=== PATIENT | female | born 1955 | race Caucasian/White ===

== ENCOUNTER → 2023-09-03 06:50 | Outpatient (REF) | payer OTHER, SELFPAY ==
--- NOTE | 2023-09-03 09:20 | OID.BR.INTR ---
[facility] Breast Navigator - Initial
- -
Date of Contact: 09/03/23
Met with patient. Patient given written information on navigator services and support services available at [facility]. Will follow up as needed per protocol.
== END ==
LOC: WDC 06:50
PROVIDERS: ATTENDING PHYSICIAN Internal Medicine
DX: R92.1 Mammographic calcification found on diagnostic imaging of breast (principal)
CPT/HCPCS: 88305; 19081; 76098; A4648

== ENCOUNTER → 2024-10-18 07:31 | Outpatient (REF) | payer OTHER, SELFPAY ==
[2024-10-18 09:30] LABS: Glycohemoglobin (HgbA1c) 5.7 % (4.0-5.6)
[2024-10-18 09:36] LABS: ALT (SGPT) 22 U/L (0-35); AST (SGOT) 24 U/L (14-36); Albumin 4.4 g/dl (3.5-5.0); Alkaline Phosphatase 60 U/L (38-126); Blood Urea Nitrogen 15 mg/dl (7-17); Calcium 9.4 mg/dl (8.4-10.2); Carbon Dioxide 26 mmol/L (22-30); Chloride 108 mmol/L (98-107); Glucose 95 mg/dl (70-99); HDL Cholesterol 81 mg/dl; LDL Cholesterol, Calculated 32 mg/dl; Potassium 4.2 mmol/L (3.5-5.1); Sodium 141 mmol/L (135-145); Total Protein 6.3 g/dl (6.3-8.2); Very Low Density Lipoprotein 9 mg/dl (0-30); eGFR > 60.00
[2024-10-18 09:49] LABS: Vitamin D, 25-OH*** 99.7 ng/mL (30-80)
[2024-10-18 10:03] LABS: TSH 0.80 uIU/ml (0.47-4.68)
[2024-10-19 12:38] LABS: CRP, Ultra Sensitive 0.87 mg/L (0.30-5.00)
[2024-10-19 18:04] LABS: Lipoprotein a (Lp a) 44 mg/dL (<=29)
== END ==
LOC: RAD 07:31
PROVIDERS: FAMILY PHYSICIAN Internal Medicine
DX: M81.8 Other osteoporosis without current pathological fracture (principal); I25.10 Atherosclerotic heart disease of native coronary artery without angina pectoris; Z86.39 Personal history of other endocrine, nutritional and metabolic disease; E78.00 Pure hypercholesterolemia, unspecified
CPT/HCPCS: 36415; 77080; 80053; 80061; 82172; 82306; 83036; 83695; 83970; 84443; 86141

== ENCOUNTER → 2024-11-18 12:42 | Outpatient (REF) | payer OTHER, SELFPAY ==
[2024-11-18 13:41] LABS: Hematocrit 42.1 % (37.0-47.0); Hemoglobin 13.6 g/dL (12.0-16.0); Mean Corp Hgb Conc. 32.3 g/dL (33.0-37.0); Mean Corpuscular Volume 87.9 fL (81.0-99.0); Nucleated Red Blood Cells % 0 %; Platelet Count 204 10^3/uL (130-400); Red Cell Dist. Width 13.2 % (11.5-14.5)
[2024-11-18 14:25] LABS: Blood Urea Nitrogen 15 mg/dl (7-17); Calcium 9.4 mg/dl (8.4-10.2); Carbon Dioxide 30 mmol/L (22-30); Chloride 105 mmol/L (98-107); Glucose 94 mg/dl (70-99); Potassium 4.4 mmol/L (3.5-5.1); Sodium 140 mmol/L (135-145); eGFR > 60.00
== END ==
LOC: REG 12:42
PROVIDERS: FAMILY PHYSICIAN Internal Medicine
DX: E78.5 Hyperlipidemia, unspecified (principal); I25.10 Atherosclerotic heart disease of native coronary artery without angina pectoris
CPT/HCPCS: 36415; 80048; 85025

== ENCOUNTER → 2025-02-07 07:15 | Outpatient (REF) | payer OTHER, SELFPAY ==
[2025-02-07 09:11] LABS: ALT (SGPT) 23 U/L (0-35); AST (SGOT) 23 U/L (14-36); Albumin 4.4 g/dl (3.5-5.0); Alkaline Phosphatase 53 U/L (38-126); Blood Urea Nitrogen 8 mg/dl (7-17); Calcium 9.4 mg/dl (8.4-10.2); Carbon Dioxide 29 mmol/L (22-30); Chloride 104 mmol/L (98-107); Glucose 95 mg/dl (70-99); HDL Cholesterol 75 mg/dl; LDL Cholesterol, Calculated 23 mg/dl; Potassium 4.7 mmol/L (3.5-5.1); Sodium 137 mmol/L (135-145); Total Protein 6.7 g/dl (6.3-8.2); Very Low Density Lipoprotein 15 mg/dl (0-30); eGFR > 60.00
[2025-02-07 09:29] LABS: Glycohemoglobin (HgbA1c) 5.7 % (4.0-5.9)
[2025-02-07 11:26] LABS: Vitamin D, 25-OH*** 94.8 ng/mL (30-80)
[2025-02-08 11:29] LABS: CRP, Ultra Sensitive 0.76 mg/L (0.30-5.00)
== END ==
LOC: REG 07:15
PROVIDERS: REFERRING PHYSICIAN Internal Medicine
DX: I25.10 Atherosclerotic heart disease of native coronary artery without angina pectoris (principal)
CPT/HCPCS: 36415; 80053; 80061; 82172; 82306; 83036; 84443; 86141